=== PATIENT | female | born 1975 | race Caucasian/White ===

== ENCOUNTER 2016-08-02 13:56 | Emergency (ER) | payer MEDICAID ==
[~2016-08-02] VITALS: Wt 73.2 kg
[~2016-08-02 13:56] MED LIST: ACET325T33 PO; ALBU8.5H5 IH; ALBU8.5H5 INH; AZIT250T94 PO; BENZ100C70 PO; CYCL-319 PO; DENIES MEDS; HYDR-3498 PO; HYDR-762 PO; IBUP-1542 PO; IBUP400T22 PO; ONDA4TAB35 PO; PANT40TA3 PO; PRED20TA PO; PREN1TAB49; PROM6.25 PO
[2016-08-02 15:01] LABS: URINE BLOOD (Dip) POC 3+ (NEGATIVE)
--- NOTE | 2016-08-02 15:32 | ERD ---
ER Documentation Chief Complaint Date/Time DATE: 08/02/16 TIME: 15:30 Chief Complaint vaginal itchiness and fullness HPI This a 41-year-old female who presents to the emergency department today complaining of vaginal itchiness and burning with some urination for the past 4 days. States she is used Monistat and Vagisil and Chlortrimazole with no improvement in symptoms. Denies any fevers or chills. She is currently on her menstrual cycle ROS All systems reviewed and are negative except as per history of present illness. Medications Home Meds Active Scripts Fluconazole* (Diflucan*) 150 Mg Tablet, 150 MG PO ONCE, #2 TAB Take first tablet then repeat in 1 week Prov:MARYCRUZ SAMUELS PA-C 08/02/16 Cephalexin* (Keflex*) 500 Mg Capsule, 500 MG PO QID for 7 Days, CAP Prov:MARYCRUZ SAMUELS PA-C 08/02/16 Pantoprazole* (Protonix*) 40 Mg Tablet.dr, 40 MG PO DAILY, #20 TAB Prov:OMERO WAN MD 08/18/15 Cyclobenzaprine Hcl* (Cyclobenzaprine Hcl*) 10 Mg Tablet, 10 MG PO TID, #15 TAB Prov:CHUCKY ADDISON NP 08/10/15 Hydrocodone Bit-Acetaminophen* ([place]*) 5-325 Mg Tab, 1 TAB PO Q6 Y for PAIN, # 20 TAB Prov:CHUCKY ADDISON NP 08/10/15 Ibuprofen* (Motrin*) 600 Mg Tab, 600 MG PO Q6H Y for PAIN AND OR ELEVATED TEMP, #30 TAB Prov:CHUCKY ADDISON NP 08/10/15 Ondansetron Hcl* (Zofran* ODT) 4 mg -ODT Tab.disper, 4 MG PO Q6 Y for NAUSEA AND /OR VOMITING, #30 TAB Prov:OMERO WAN MD 04/06/15 Hydrocodone Bit-Acetaminophen* ([place]*) 10-325 Mg Tablet, 1 TAB PO Q6 Y for PAIN , #7 TAB Prov:OMERO WAN MD 04/06/15 Cyclobenzaprine Hcl* (Cyclobenzaprine Hcl*) 10 Mg Tablet, 10 MG PO TID, #15 TAB Prov:JADONSANGEETHA Abi 02/24/15 Ibuprofen* (Motrin*) 600 Mg Tab, 600 MG PO Q6H Y for PAIN AND OR ELEVATED TEMP, #30 TAB Prov:SANGEETHA DIOP Abi 02/24/15 Albuterol Sulfate* (Albuterol Sulfate* HFA) 8.5 Gm Hfa.aer.ad, 2 PUFF IH Q4H Y for WHEEZING AND SOB, #1 EA Prov:LIO MCINTOSH PA-C 10/13/14 Azithromycin* (Zithromax*) 250 Mg Tablet, 250 MG PO .ZPACK DIRECTED, #6 TAB TAKE 500 MG (2 TABS) THE FIRST DAY THEN 250 MG (1 TAB) DAYS 2-5 Prov:LIO MCINTOSH PA-C 10/13/14 Promethazine w/Codeine* (Phenergan w/Codeine* Syrup) 5 Ml Syrup, 5 ML PO Q4H Y for COUGH, #4 OZ Prov:LOPEZ NEVAREZA 09/11/14 Albuterol Sulfate* (Albuterol Sulfate* HFA) 8.5 Gm Hfa.aer.ad, 1-2 PUFF INH Q4 Y for SHORTNESS OF BREATH, #1 EA Prov:LOPEZ NEVAREZA 09/11/14 Prednisone* (Prednisone*) 20 Mg Tab, 20 MG PO BID for 4 Days, TAB Prov:CHOTONE 09/11/14 Azithromycin* (Zithromax*) 250 Mg Tablet, 250 MG PO .ZPACK DIRECTED, #6 TAB TAKE 500 MG (2 TABS) THE FIRST DAY THEN 250 MG (1 TAB) DAYS 2-5 Prov:LOPEZ NEVAREZA 09/11/14 Ibuprofen* (Motrin*) 400 Mg Tab, 400 MG PO Q6, #30 TAB Prov:SHAMIR BYRD PA-C 09/03/14 Acetaminophen* (Tylenol*) 325 Mg Tablet, 1 TAB PO Q6 Y for PAIN AND OR ELEVATED TEMP, #30 TAB Prov:SHAMIR BYRD PA-C 09/03/14 Promethazine w/Codeine* (Phenergan w/Codeine* Syrup) 5 Ml Syrup, 5 ML PO HS Y for COUGH for 7 Days, ML Prov:SHAMIR BYRD PA-C 09/03/14 Benzonatate* (Tessalon Perle*) 100 Mg Capsule, 100 MG PO TID, #30 CAP Prov:ROCHELLESHAMIR Cho PA-C 09/03/14 Reported Medications Vits W-Ca,Fe,Fa(<1MG) () 1 Tab Tablet 06/14/10 [Denies Meds] No Conflict Check 05/23/10 Allergies Allergies: Coded Allergies: No Known Drug Allergy (Verified Allergy, Mild, 02/24/15) PMhx/Soc History of Surgery: Yes (CYHOLECYSTECTOMY ) Anesthesia Reaction: No Hx Neurological Disorder: No Hx Respiratory Disorders: No Hx Cardiac Disorders: No Hx Psychiatric Problems: No Hx Miscellaneous Medical Probl: No Hx Alcohol Use: No Hx Substance Use: No Hx Tobacco Use: No Smoking Status: Never smoker Physical Exam Vitals Vital Signs Date Time Temp Pulse Resp B/P Pulse Ox O2 Delivery O2 Flow Rate FiO2 08/02/16 14:13 98.0 79 20 146/91 98 Physical Exam Const: No acute distress Head: Atraumatic Eyes: Normal Conjunctiva ENT: Normal External Ears, Nose and Mouth. Neck: Full range of motion..~ No meningismus. Resp: Clear to auscultation bilaterally Cardio: Regular rate and rhythm, no murmurs Abd: Soft, non tender, non distended. Normal bowel sounds : Pelvic exam shows a significant amount of yeast and vaginal bleeding. No cervical motion tenderness. Skin: No petechiae or rashes Back: No midline or flank tenderness Ext: No cyanosis, or edema Neur: Awake and alert Psych: Normal Mood and Affect Results 24 hrs Laboratory Tests Test 08/02/16 15:06 Bedside Urine pH (LAB) 7.5 Bedside Urine Protein (LAB) 1+ Bedside Urine Glucose (UA) Negative Bedside Urine Ketones (LAB) Negative Bedside Urine Blood 3+ Bedside Urine Nitrite (LAB) Negative Bedside Urine Leukocyte Esterase (L 3+ Procedures/MDM This is a 41-year-old female who presents to the emergency department today complaining of vaginal itchiness and some burning with urination and pressure. I did obtain a UA as well as do a pelvic exam UA shows 3+ leukocyte esterase and 3+ blood. Patient indicated she is currently on her menstrual cycle. Patient be given a prescription for Keflex for a urinary tract infection. test is negative Vaginal exam shows vaginal bleeding with a significant amount of yeast. No cervical motion tenderness. Low suspicion for PID. Patient be given a prescription for Keflex and Diflucan. She may continue using her Chlortrimazole. At this time the patient is stable for discharge and outpatient management. Patient should follow up with their PCP in the next 1-2 days. They may return to the emergency department sooner for any persistent or worsening of symptoms. Patient understood and agreed with the plan. Departure Diagnosis: Primary Impression: UTI (urinary tract infection) Urinary tract infection type: site unspecified Hematuria presence: with hematuria Qualified Code: N39.0 - Urinary tract infection with hematuria, site unspecified Additional Impression: Vaginal yeast infection Condition: Fair MARYCRUZ SAMUELS PA-C Aug 02, 2016 15:32
[2016-08-02] MEDS ORDERED: CEPH-443 PO (15:56)
[2016-08-02] MEDS ORDERED: FLUC150T17 PO (15:57)
== END 2016-08-02 16:25 | disposition home or self-care (01) ==
LOC: FTE 13:56
DX: N39.0 Urinary tract infection, site not specified (principal); B37.3 Candidiasis of vulva and vagina
CPT/HCPCS: 81003; Z7502; 99284

== ENCOUNTER 2017-03-14 16:05 | Emergency (ER) | END 2017-03-14 17:07 | disposition home or self-care (01) ==

== ENCOUNTER 2018-04-18 16:55 | Emergency (ER) | payer SELFPAY ==
[~2018-04-18] VITALS: Ht 162.6 cm; Wt 76.1 kg
[~2018-04-18 16:55] MED LIST changes: +AZIT250T PO; -AZIT250T94 PO; +BENZ-6 PO; -BENZ100C70 PO; +CEPH-443 PO; -CYCL-319 PO; +CYCL10TA7 PO; +FLUC150T PO; +IBUP-1561 PO; -IBUP400T22 PO; +LORA1TAB54 PO
[2018-04-18 17:10] VITALS: Ht 162.6 cm; Wt 76.1 kg
== END 2018-04-18 20:02 | disposition left against medical advice (07) ==
LOC: E/R 16:55
DX: Z53.21 Procedure and treatment not carried out due to patient leaving prior to being seen by health care provider (principal)

== ENCOUNTER 2018-05-05 11:12 | Outpatient (CLI) | payer MEDICAID ==
[~2018-05-05] VITALS: Ht 160 cm; Wt 75.0 kg
[2018-05-05 11:20] VITALS: Ht 160 cm; Wt 75.0 kg
--- NOTE | 2018-05-05 13:12 | TRIAGE ---
OB Triage Datetime Report Generated by CPN: 05/05/2018 13:12 Datetime: 05/05/2018 13:07 Stage of : OB Triage Maternal Assessment Level of Consciousness: Fully Conscious DTR's/Clonus: DTRs 1+ Headache: Denies Nausea/Vomiting: Denies RUQ Epigastric Pain: Denies Labor Evaluation Frequency: NONE Monitor Mode: External Resting Tone [place]: Relaxed Heart Rate FHR Baseline Rate: 145 Monitor Mode: Doppler Pain Assessment Pain Presence: None/Denies Pain Type: N/A Vaginal Exam Membrane Status: Intact Datetime: 05/05/2018 11:50 Maternal Assessment Level of Consciousness: Fully Conscious DTR's/Clonus: DTRs 1+ Headache: Denies Blurred Vision: No Nausea/Vomiting: Denies RUQ Epigastric Pain: Denies Facial Edema: None Labor Evaluation Frequency: NONE Monitor Mode: External Resting Tone [place]: Relaxed Heart Rate FHR Baseline Rate: 145 Monitor Mode: Doppler Pain Assessment Pain Presence: None/Denies Pain Type: N/A Vaginal Exam Membrane Status: Intact Datetime: 05/05/2018 11:18 Assessment Type: Triage Maternal Assessment Level of Consciousness: Fully Conscious DTR's/Clonus: DTRs 2+; No Clonus Headache: Denies Blurred Vision: No Respiratory Effort: Unlabored; Regular Rhythm; Equal Expansion Breath Sounds, Left: Clear and Equal Breath Sounds, Right: Clear and Equal Nausea/Vomiting: Denies RUQ Epigastric Pain: Denies Lower Extremities Edema: None Degree: None Upper Extremities Edema: None Degree: None Facial Edema: None Fall Risk Assessment History of Falling: (0) No Secondary Diagnosis: (0) No Ambulatory Aid: (0) Bedrest/Nurse Assist IV Therapy: (0) No Gait: (0) Normal/Bedrest/Immobile Mental Status: (0) Oriented to Own Ability Fall Score: 0 Fall Risk Score Definition: No Risk: No action required Datetime: 05/05/2018 11:12 Time of Arrival: 05/05/2018 11:12 EGA: 21.6 Arrived By: Ambulatory Arrived From: Home Chief Complaint: PT CAME IN C/O UC'S AND SPOTTING SINCE 0730 AM Movement: Present Contractions: Irregular Time Contractions Began: 05/05/2018 07:00 Contractions: 5 MIN Rupture of Membranes: Denies Vaginal Discharge: Denies Recent Sexual Intercouse: Denies Abdominal Trauma: Not Applicable Additional Patient Complaints: NONE Time Provider Notified: 05/05/2018 11:18 Provider Notified: QUENTIN Initial Plan: TOCO, DOPPLER, CX LENGHT AND UA
--- NOTE | 2018-05-05 13:34 | PN ---
Triage Information Date/Time Reason for visit: Abd/pelvic pain Weeks of Gestation 21-week and 6 days /Para Diabetes: none Hypertention: none Objective Heart Rate: 130's Contractions: None Results/Medications Results 24 hrs Laboratory Tests Test 05/05/18 11:18 Urine Color STRAW Urine Clarity CLEAR Urine pH 7.0 Urine Specific [place] 1.002 L Urine Ketones NEGATIVE Urine Nitrite NEGATIVE Urine Bilirubin NEGATIVE Urine Urobilinogen NEGATIVE Urine Leukocyte Esterase NEGATIVE Urine Hemoglobin NEGATIVE Urine Glucose NEGATIVE Urine Total Protein NEGATIVE Imaging Results Noted is a single intrauterine gestation in cephalic lie with positive heart beat measuring 150 beats per minute. The placenta is posterior grade 0 without evidence of previa. Maternal cervix is closed measuring 5.4 cm in [facility]. IMPRESSION: Single intrauterine gestation in cephalic lie with positive heart beat. Posterior grade 0 placenta without previa. Cervix is closed measuring 5.4 cm. Disposition: Discharge Assessment/Plan 43-year-old with single intrauterine at 21 weeks and 6 days complaining of abdominal pain and possible uterine contractions. She states good movement. She denies nausea, vomiting, shortness of breath, chest pain, headache, visual changes, vaginal bleeding or LOF. -FHR: No sign of metabolic acidosis- Category I -Contractions: None -Ultrasound performed: As noted above, normal cervical length -Urinalysis within normal limits -Symptoms and sign of labor, preeclampsia, kick count discussed with patient, she voiced understanding. All of her questions answered. -Patient was discharged home in stable condition with the appropriate discharge instructions provided. I would like patient to have close follow-up with her primary physician or outpatient clinic in 1-2 days or return to triage for worsening symptoms or any other urgent concerns. LILIA SAAVEDRA May 05, 2018 13:34
== END 2018-05-05 13:08 | disposition home or self-care (01) ==
LOC: OBT 11:12 → L-D 11:14 → OBT 13:08
PROVIDERS: ATTEND Obstetrics & Gynecology
DX: O26.892 Other specified pregnancy related conditions, second trimester (principal); R10.2 Pelvic and perineal pain; O09.522 Supervision of elderly multigravida, second trimester; Z3A.21 21 weeks gestation of pregnancy
CPT/HCPCS: 76817; 81003; Z7500; G0463

== ENCOUNTER 2018-08-01 17:36 | Outpatient (CLI) | payer MEDICAID ==
[~2018-08-01] VITALS: Ht 157.5 cm; Wt 78.7 kg
[~2018-08-01 17:36] MED LIST changes: -ACET325T33 PO; -ALBU8.5H5 IH; -ALBU8.5H5 INH; -AZIT250T PO; -BENZ-6 PO; -CEPH-443 PO; -CYCL10TA7 PO; -DENIES MEDS; -FLUC150T PO; -HYDR-3498 PO; -HYDR-762 PO; -IBUP-1542 PO; -IBUP-1561 PO; -LORA1TAB54 PO; -ONDA4TAB35 PO; -PANT40TA3 PO; -PRED20TA PO; -PROM6.25 PO
[2018-08-01 17:43] VITALS: Ht 157.5 cm; Wt 78.7 kg
[2018-08-01 17:44] VITALS: BP 126/74; PULSE 82; RESP 18
[2018-08-01] MEDS ORDERED: LACTATED RINGER'S 1,000 ML IV SCH (18:00)
[2018-08-01] MEDS ORDERED: TERBUTALINE 1 MG/ML INJ SC PRN (19:00)
--- NOTE | 2018-08-01 22:34 | PN ---
Triage Information Date/Time Reason for visit: Abd/pelvic pain Weeks of Gestation 43-year-old 4 para 2 at 34 weeks and 4 days of gestation with estimated date of delivery September 09, 2018 Patient presents with chief complaint of abdominal pain and uterine contractions Patient reports positive movement, denies vaginal bleeding or leaking fluid /Para 4 para 2 Diabetes: none Hypertention: none Objective Vital Signs Date Temp Pulse Resp B/P (MAP) Pulse Ox O2 O2 Flow FiO2 Time Delivery Rate 08/01/18 98.1 82 18 126/74 17:44 (91) Heart Rate: 140's Heart Rate Comments heart rate tracing category 1 Contractions: < 5 Minutes Apart Results/Medications Results 24 hrs Laboratory Tests Test 08/01/18 18:00 Urine Color COLORLESS Urine Clarity CLEAR Urine pH 7.0 Urine Specific [place] 1.001 L Urine Ketones NEGATIVE Urine Nitrite NEGATIVE Urine Bilirubin NEGATIVE Urine Urobilinogen NEGATIVE Urine Leukocyte Esterase NEGATIVE Urine Hemoglobin NEGATIVE Urine Glucose NEGATIVE Urine Total Protein NEGATIVE Imaging Results Ordering MD: LILIA SAAVEDRA MD Location: [facility] Room/Bed: PROCEDURE: US OB. CLINICAL INDICATION: labor TECHNIQUE: Multiple sonographic images of the pelvis were obtained. The images were reviewed on a PACS workstation. COMPARISON: No prior studies are available for comparison. FINDINGS: There is a single viable intrauterine gestation. Cardiac activity is present with 140 beats per minute. There is a cephalic presentation. Measurements were made in order to determine age. The results are as follows: BPD = 8.34 cm 33 weeks 4 days HC = 29.93 cm 33 weeks 1 day AC = 33.26 cm 37 weeks 1 day FL = 6.78 cm 34 weeks 6 days. Estimated gestational age of approximately 34 weeks 5 days. The estimated date of delivery is 09/07/2018. The EFW = 2752 g 81.5% . The placenta is right posterior grade 1 to II. There is no evidence for an abruption . There is a normal amount of amniotic fluid with an SHERRY = 10.1 cm. IMPRESSION: Single viable intrauterine gestation of approximately 34 weeks 5 days. The estimated date of delivery is 09/07/2018 . Abdominal circumference measurement is disproportionate larger than other measurements. Recommend a follow-up study. .Efra Chanel MD, MD Date Time Electronically viewed and signed by .Efra Chanel MD, MD on 08/01/2018 18:32 .W/ CC: LILIA SAAVEDRA [phone] PROCEDURE: US OB. CLINICAL INDICATION: Labor TECHNIQUE: Multiple sonographic images of the pelvis were obtained. The images were reviewed on a PACS workstation. COMPARISON: No prior studies are available for comparison. FINDINGS: There is a single live intrauterine . cardiac activity is identified at a rate of 140 beats per minute. presentation is cephalic. Placenta is posterior right grade 1 to II. Cervix is closed with a length of 3.2 cm Biophysical profile score is as follows: Breathing 2 Movements 2 Tone 2 Fluid volume 2 Amniotic fluid index = 10.1 cm Total biophysical profile score = 8/8 IMPRESSION: Biophysical profile score = 8/8 Cervix is closed with a length of 3.2 cm RPTAT: HH .Efra Chanel MD, Date Time Electronically viewed and signed by .Efra Chanel MD, MD on 08/01/2018 18:25 .W/ CC: LILIA SAAVEDRA [phone] Disposition: Discharge Assessment/Plan Patient received IV fluids and terbutaline x1 dose and contractions completely subsided Patient counseled to increase p.o. hydration kick count instructions were given Labor precautions were given Patient instructed to follow-up with [facility] in 1 to 2 days DONNA CARTER MD Aug 01, 2018 22:34
--- NOTE | 2018-08-02 03:19 | TRIAGE ---
OB Triage Datetime Report Generated by CPN: 08/02/2018 03:19 Datetime: 08/01/2018 21:50 Stage of : OB Triage Datetime: 08/01/2018 21:32 Stage of : OB Triage Labor Evaluation Frequency: Occasional Monitor Mode: External Pattern: Normal: <= 5 Contractions in 10 Minutes Resting Tone [place]: Relaxed Heart Rate FHR Baseline Rate: 130 Monitor Mode: External US Variability: Moderate 6-25 bpm Accelerations: 15X15 Decelerations: None Category: Category I Pain Presence: None/Denies Pain Type: N/A Pain Relief Measures: Comfort Measures Datetime: 08/01/2018 20:36 Stage of : OB Triage Labor Evaluation Frequency: 2-6 Monitor Mode: External Resting Tone [place]: Relaxed Heart Rate FHR Baseline Rate: 125 Monitor Mode: External US Variability: Moderate 6-25 bpm Accelerations: 15X15 Decelerations: None Category: Category I Pain Assessment Pain Scale: 5 Pain Presence: Intermittent Pain Type: Contraction Pain Location: Abdomen; Back Pain Relief Measures: Comfort Measures Datetime: 08/01/2018 19:32 Stage of : OB Triage Labor Evaluation Frequency: 2-5 Monitor Mode: External Duration (sec)2399: 50-80 Resting Tone [place]: Relaxed Heart Rate FHR Baseline Rate: 125 Monitor Mode: External US Variability: Moderate 6-25 bpm Accelerations: 15X15 Decelerations: None Category: Category I Pain Assessment Pain Scale: 6 Pain Presence: Intermittent Pain Type: Contraction Pain Location: Abdomen; Back Pain Relief Measures: Comfort Measures Datetime: 08/01/2018 19:30 Time of Arrival: 08/01/2018 17:28 EGA: 34.3 Arrived By: Wheelchair Arrived From: Emergency Dept Movement: Decreased Contractions: Irregular Rupture of Membranes: Denies Vaginal Bleeding: None Vaginal Discharge: Denies Recent Sexual Intercouse: Denies Abdominal Trauma: Not Applicable Patient Complaints: Contractions; Back Pain Time Provider Notified: 08/01/2018 18:43 Provider Notified: Ardalan Initial Plan: VS, EFM Datetime: 08/01/2018 18:30 Stage of : OB Triage Maternal Assessment Level of Consciousness: Keenly Alert, Responsive Labor Evaluation Frequency: 2-6 Monitor Mode: External Duration (sec)2399: 30-90 Quality: Moderate Resting Tone [place]: Relaxed Heart Rate FHR Baseline Rate: 135 Monitor Mode: External US Variability: Moderate 6-25 bpm Accelerations: 15X15 Decelerations: None Category: Category I Pain Assessment Pain Scale: 0 Pain Goal: 3 Membrane Status: Intact Vaginal Bleeding: None Datetime: 08/01/2018 17:45 Vaginal Exam Dilatation (cms): 0.0 Exam By: [facility] Datetime: 08/01/2018 17:42 Assessment Type: Triage Maternal Assessment Level of Consciousness: Keenly Alert, Responsive DTR's/Clonus: DTRs 2+; No Clonus Headache: Denies Blurred Vision: No Respiratory Effort: Unlabored; Regular Rhythm; Equal Expansion Breath Sounds, Left: Clear and Equal Breath Sounds, Right: Clear and Equal Nausea/Vomiting: Denies RUQ Epigastric Pain: Denies Lower Extremities Edema: None Degree: None Upper Extremities Edema: None Degree: None Facial Edema: None Fall Risk Assessment History of Falling: (0) No Secondary Diagnosis: (0) No Ambulatory Aid: (0) Bedrest/Nurse Assist IV Therapy: (0) No Gait: (0) Normal/Bedrest/Immobile Mental Status: (0) Oriented to Own Ability Fall Score: 0 Fall Risk Score Definition: No Risk: No action required Datetime: 08/01/2018 17:38 Monitor Mode: External Monitor Mode: External US Datetime: 05/05/2018 13:08 Time of Arrival: 08/01/2018 17:28 EGA: 34.3 Arrived By: Ambulatory Arrived From: Home Chief Complaint: C/O lower abdominal pain _ pressure, lower back pain since 2pm, pain level 5/10, q 10-20mins, also c/o decreased fm Movement: Decreased Rupture of Membranes: Denies Vaginal Bleeding: None Vaginal Discharge: Denies Recent Sexual Intercouse: Denies Abdominal Trauma: Not Applicable Datetime: 05/05/2018 11:18 Fall Score: 0 Fall Risk Score Definition: No Risk: No action required Datetime: 05/05/2018 11:12 EGA: 21.6
== END 2018-08-01 22:00 | disposition home or self-care (01) ==
LOC: OBT 17:36 → L-D 17:36 → OBT 22:00
PROVIDERS: ATTEND Obstetrics & Gynecology
DX: O26.893 Other specified pregnancy related conditions, third trimester (principal); O47.03 False labor before 37 completed weeks of gestation, third trimester; Z3A.34 34 weeks gestation of pregnancy; O09.523 Supervision of elderly multigravida, third trimester
CPT/HCPCS: 76815; 76817; 76818; 81003; 96360; 96372; J3105; J7120; Z7500; G0463

== ENCOUNTER 2018-08-30 15:46 | Inpatient (IN) | payer MEDICAID ==
[~2018-08-30] VITALS: Ht 154.9 cm; Wt 79.3 kg
[2018-08-30 15:58] VITALS: BMI 33.0
[2018-08-30 15:59] VITALS: BP 117/74; PULSE 93; RESP 18
[2018-08-30] MEDS ORDERED: LACTATED RINGER'S 1,000 ML IV PRN (19:35)
[2018-08-30] MEDS: LACTATED RINGER'S 1,000 ML IV SCH (19:54)
[2018-08-30] MEDS ORDERED: IBUPROFEN 600 MG TAB PO PRN (20:00)
[2018-08-30] MEDS ORDERED: CARBOPROST 250 MCG INJ IM PRN (20:00)
[2018-08-30] MEDS ORDERED: BUTORPHANOL 2 MG INJ IV PRN (20:00)
[2018-08-30] MEDS ORDERED: MISOPROSTOL 200 MCG TAB PR PRN (20:00)
[2018-08-30] MEDS ORDERED: OXYTOCIN 30 UNITS/LR 500 ML IV SCH ×3 (20:00)
[2018-08-30] MEDS ORDERED: OXYTOCIN 30 UNITS/LR 500 ML IV PRN (20:00)
[2018-08-30] MEDS ORDERED: METHYLERGONOVINE 0.2 MG INJ IM PRN (20:00)
[2018-08-30] MEDS ORDERED: LIDOCAINE 1% (MPF) 30 ML INJ INJ PRN (20:00)
[2018-08-30] MEDS ORDERED: MINERAL OIL LIGHT 10 ML VIAL TOP PRN (20:00)
--- NOTE | 2018-08-30 20:15 | HP ---
Date/Time of Note Date/Time of Note DATE: 08/30/18 TIME: 20:09 OB - History Hx of Present Free Text/Dictation 43y.o A1 at 38w4d with c/o uc's 4-10min apart ,intact membrane. Initial VE ftp/30/-3 , pain level 4/10 but constant pain she cannot bear with it. no record is available at present admitted for expectant management , poss pitocin augmentation. GBS statu is not known Chief Complaint: uc Estimated Due Date: Sep 07, 2018 : 4 Para: 2 Spontaneous : 1 Therapeutic : 0 Care: Other Ultrasounds: Other Obstetrical Complications: Other Medical Complications: Other Past Family/Social History * Past Medical, Surgical, Family and Obstetric Histories reviewed from chart. Blood Type: Unknown Rubella: unknown RPR/VDRL: Unknown GBS Status: Unknown HBsAG: Unknown OB Admission Exam Vital Signs Vital Signs Vital Signs Date Temp Pulse Resp B/P (MAP) Pulse Ox O2 O2 Flow FiO2 Time Delivery Rate 08/30/18 98.2 93 18 117/74 Room Air 15:59 (88) Physical Exam HEENT: WNL Heart: Rhythm Normal Lungs: Clear, Equal Abdomen: WNL Extremities: Normal Reflexes: Normal Cervical Dilatation: Fingertip Effacement: Other (30%) Station: -3 Membranes: Intact Amniotic Fluid: Unevaluable Heart Rate: 140's Accelerations: Accelerations Present Decelerations: No Decelerations Varibility: Moderate Contractions on Admission: < 5 Minutes Apart Intensity: Mild Last 72 hours Lab Results CBC & BMP 08/30/18 19:21 OB Assessment/Plan Other Assessment: A IUP 38w4d in early labor Plan: Expectant Management, Other (possible pitocin augmentation) ZABRINA WILLIS MD Aug 30, 2018 20:15
[2018-08-31] MEDS: LACTATED RINGER'S 1,000 ML IV SCH ×3 (03:31→19:35)
[2018-08-31 07:57] VITALS: Ht 154.9 cm; Wt 79.3 kg
[2018-08-31 07:58] VITALS: BP 110/69; PULSE 78; RESP 17
[2018-09-01] MEDS ORDERED: FENTAnyl 2MCG/ML-ROPIV 0.2% 100 ML ONE (02:38)
--- NOTE | 2018-09-01 02:50 | PREAC ---
Date/Time of Note Date/Time of Note DATE: 09/01/18 TIME: 02:48 Anesthesia Eval and Record Evaluation Time Pre-Procedure Interview DATE: 09/01/18 TIME: 02:04 Age 43 Sex female NPO: 8 hrs Preoperative diagnosis iup @ 38.5 wks., , labor Planned procedure sukumar Past Medical History Past Medical History: Includes : : (4), Para: (2), Gestational age: (38.5 wks.) Surgery & Anesthesia Issues No known issue Meds Anticoagulation: No Beta Elia within 24 hr: No Reason Beta Elia not given: Pt. not on B-Elia Reported Medications Vits W-Ca,Fe,Fa(<1MG) () 1 Tab Tablet 06/14/10 Current Medications Lactated Ringer's 1,000 ml @ 125 mls/hr Q8H IV Last administered on 08/31/18at 19:35; Admin Dose 125 MLS/HR; Start 08/30/18 at 19:35 Butorphanol Tartrate (Stadol) 2 mg Q2H PRN IV .PAIN SCALE 6-10; Start 08/30/18 at 20:00 Lidocaine (Xylocaine 1% (Mpf)) 30 ml ONCE PRN INJ .EPISIOTOMY; Start 08/30/18 at 20:00 Oxytocin/Lactated Ringer's 500 ml @ 500 mls/hr ONCE POST IV ; Start 08/30/18 at 20:00 Oxytocin/Lactated Ringer's 500 ml @ 125 mls/hr POST IV ; Start 08/30/18 at 20:00 Ibuprofen (Motrin) 600 mg ONCE PRN PO .PAIN 1-5; Start 08/30/18 at 20:00 Lactated Ringer's 1,000 ml @ 2,000 mls/hr Q30M PRN IV .ANESTHESIA Last administered on 09/01/18at 01:43; Admin Dose 2,000 MLS/HR; Start 08/30/18 at 19:35 Oxytocin/Lactated Ringer's 500 ml @ 0 mls/hr ONCE PRN IV .VAGINAL BLEEDING; Start 08/30/18 at 20:00 Methylergonovine Maleate (Methergine) 0.2 mg ONCE PRN IM .VAGINAL BLEEDING; Start 08/30/18 at 20:00 Carboprost Tromethamine (Hemabate) 250 mcg ONCE PRN IM .VAGINAL BLEEDING; Start 08/30/18 at 20:00 Misoprostol (Cytotec) 1,000 mcg ONCE PRN SC .VAGINAL BLEEDING; Start 08/30/18 at 20:00 Oxytocin/Lactated Ringer's 500 ml @ 0 mls/hr FOR AUGMENTATION IV Last admi nistered on 08/31/18at 08:42; Admin Dose 1 MLS/HR; Start 08/30/18 at 20:00 Meds reviewed: Yes Allergies Coded Allergies: No Known Drug Allergy (Verified Allergy, Mild, 08/30/18) Allergies Reviewed: Yes Labs/Studies Labs Reviewed: Reviewed by anesthesiologist Result Diagram: 08/30/181920 test: Positive Pre-procedure Exam Last vitals Vital Signs Date Temp Pulse Resp B/P (MAP) Pulse Ox O2 O2 Flow FiO2 Time Delivery Rate 08/31/18 97.3 78 17 110/69 Room Air 07:58 (83) Airway: Adequate mouth opening, Adequate thyromental dist Mallampati: Mallampati II Teeth: Normal Lung: Normal Heart: Normal ASA Physical Status ASA physical status: 2 Emergency: E Planned Anesthetic Neuraxial: Epidural Planned Pain Management Epidural, Parenteral pain med, Other neuraxial med Pre-operative Attestations Prior to commencing anesthesia and surgery, the patient was re-evaluated, there was verification of: *The patient's identity *The results of appropriate recent lab work and preoperative vital signs *The above evaluation not changing prior to induction *Anesthetic plan, risk benefits, alternative and complications discussed with patient/family; questions answered; patient/family understands, accepts and wishes to proceed. Teaseler used CATERINA ALONSO MD Sep 01, 2018 02:50
[2018-09-01] MEDS ORDERED: NALOXONE (0.4 MG/ML) INJ IV PRN (03:00)
[2018-09-01] MEDS ORDERED: ONDANSETRON 4 MG INJ IV PRN (03:00)
[2018-09-01] MEDS ORDERED: FENTAnyl 2MCG/ML-ROPIV 0.2% 100 ML BAG EPI SCH (03:00)
[2018-09-01] MEDS: LACTATED RINGER'S 1,000 ML IV SCH (04:10)
[2018-09-01 06:30] VITALS: BP 112/61; PULSE 66; RESP 19
[2018-09-01] MEDS ORDERED: OXYTOCIN 30 UNITS/LR 500 ML IV SCH (06:31)
[2018-09-01] MEDS ORDERED: DIBUCAINE 1% 30 GM OINT TOP PRN (07:00)
[2018-09-01] MEDS ORDERED: BENZOCAINE 20% 56 ML SPRAY TOP PRN (07:00)
[2018-09-01] MEDS ORDERED: LANOLIN HPA 1 PKT TOP PRN (07:00)
[2018-09-01] MEDS ORDERED: MAGNESIUM HYDROXIDE 30ML CUP PO PRN (07:00)
[2018-09-01] MEDS ORDERED: ACETAMINOPHEN 325 MG TAB PO PRN ×2 (07:00)
[2018-09-01] MEDS ORDERED: WITCH HAZEL/GLYCERIN PAD PR PRN (07:00)
[2018-09-01] MEDS ORDERED: CARBOPROST 250 MCG INJ IM PRN (07:00)
[2018-09-01] MEDS ORDERED: MISOPROSTOL 200 MCG TAB PR PRN (07:00)
[2018-09-01] MEDS ORDERED: METHYLERGONOVINE 0.2 MG INJ IM PRN (07:00)
[2018-09-01] MEDS ORDERED: OXYTOCIN 30 UNITS/LR 500 ML IV PRN (07:00)
[2018-09-01 09:00] VITALS: BP 116/64; PULSE 73; RESP 14
--- NOTE | 2018-09-01 09:14 | PAC ---
Date/Time of Note Date/Time of Note DATE: 09/01/18 TIME: 09:14 Post-Anesthesia Notes Post-Anesthesia Note Last documented vital signs Vital Signs Date Temp Pulse Resp B/P (MAP) Pulse Ox O2 O2 Flow FiO2 Time Delivery Rate 09/01/18 98.0 66 19 112/61 Room Air 06:30 (78) Activity: WNL Respiratory function: WNL Cardiovascular function: WNL Mental status: Baseline Pain reasonably controlled: Yes Hydration appropriate: Yes Nausea/Vomiting absent: Yes CATERINA ALONSO MD Sep 01, 2018 09:14
--- NOTE | 2018-09-01 09:43 | LDN ---
Date/Time of Note Date/Time of Note DATE: 09/01/18 TIME: 09:39 Delivery Summary Term gestation Placenta Delivered: Spontaneously Meconium: none Episiotomy: No Laceration repair: Superficial laceration repaired with 3-0 chromic Anesthesia type: Epidural Estimated blood loss: 200 Sponge & Needle done & correct: Yes All needle counts correct: Yes Any foreign bodies felt in the: No Infant Delivery Information Sex Sex: male Apgars 1 Minute: 9 5 Minute: 9 Suctioning Nose & mouth suctioned at jesse: Yes Delee suction performed: No Umbilical Cord Umbilical cord with: 3 Vessels Cord presentations: no nuchal cord Cord Blood was obtained: Yes Mother & Baby Disposition Disposition Baby's weight 8 pounds 1 ounces/ 3645 g Methergine IM x1 dose given Copies To: CC: LILIA SAAVEDRA BAHAREH MD Sep 01, 2018 09:43
[2018-09-01] MEDS: LACTATED RINGER'S 1,000 ML IV* SCH ×3 (09:48→22:31)
[2018-09-01 16:00] VITALS: BP 104/44; PULSE 74; RESP 16
[2018-09-01 20:00] VITALS: BP 100/69; PULSE 75; RESP 20
[2018-09-01] MEDS: IBUPROFEN 600 MG TAB PO PRN (20:08)
[2018-09-02] MEDS: IBUPROFEN 600 MG TAB PO PRN ×3 (02:23→17:36)
[2018-09-02] MEDS ORDERED: ONDANSETRON 4 MG INJ IV PRN (03:00)
[2018-09-02 04:07] VITALS: BP 105/54; PULSE 74; RESP 20
[2018-09-02] MEDS: LACTATED RINGER'S 1,000 ML IV* SCH ×3 (06:31→22:31)
[2018-09-02 08:00] VITALS: BP 97/56; PULSE 72; RESP 16
--- NOTE | 2018-09-02 11:55 | PN ---
Date/Time of Note Date/Time of Note DATE: 09/02/18 TIME: 11:55 OB Subjective Subjective Subjective PPD#1 Patient without complaints. tolerating regular diet. ambulating. voiding. breast feeding. 97/56 hr 70 h/h 10.5/32.1 abd fundus below umbilicus ext nttp 1. -routine care. MILESTONE,BOBBY MAX Sep 02, 2018 11:55
[2018-09-02 15:55] VITALS: BP 102/63; PULSE 76; RESP 18
[2018-09-02 19:35] VITALS: BP 100/59; PULSE 67; RESP 18
[2018-09-02] MEDS: SENNA/DOCUSATE NA (8.6MG/50MG) TAB PO PRN (20:58)
[2018-09-03 03:38] VITALS: BP 99/68; RESP 19
[2018-09-03 07:40] VITALS: BP 104/51; PULSE 74; RESP 18
[2018-09-03] MEDS: SENNA/DOCUSATE NA (8.6MG/50MG) TAB PO PRN (08:56)
[2018-09-03] MEDS: IBUPROFEN 600 MG TAB PO PRN (09:02)
--- NOTE | 2018-09-03 12:40 | QN ---
Documentation Comment PPD#2 is stable afebrile No VB +BM +voids VS stable Gen NAD Abd soft NT ND Genitalia No blood at perineum --->Discharge RYLIE VELASCO M.D. Sep 03, 2018 12:40
--- NOTE | 2018-09-03 12:41 | DS ---
Date/Time of Note Date/Time of Note DATE: 09/03/18 TIME: 12:40 Discharge Summary Admission/Discharge Info Admit Date/Time Aug 30, 2018 at 17:48 Discharge Date/Time Sep 03, 2018 at 11:51 Discharge Diagnosis Patient Condition: Good Hospital Course uneventful Home Meds Reported Medications Vits W-Ca,Fe,Fa(<1MG) () 1 Tab Tablet 06/14/10 Primary Care Provider Care Physician No Primary RYLIE VELASCO M.D. Sep 03, 2018 12:41
--- NOTE | 2018-09-04 12:23 | DELSUM ---
Delivery Summary A-C Datetime Report Generated by CPN: 09/04/2018 12:23 DELIVERY PERSONNEL Director Of Publications: [place] MATERNAL INFORMATION Delivery Anesthesia: Epidural Medications in Delivery: 30U PITOCIN WITH LR Delivery QBL (ml): 200 Placenta Cultured: No Maternal Complications: None LABOR SUMMARY EDC: 09/09/2018 00:00 No. Babies in Womb: 1 Attempted: No Labor Anesthesia: Epidural LABOR INFORMATION Reason for Induction: Not Applicable Onset of Labor: 08/30/2018 02:00 Complete Dilatation: 09/01/2018 04:55 Group B Beta Strep: Negative Antibiotics # of Doses: 0 Steroids Given: None Reason Steroids Not Administered: Not Applicable MEMBRANES Membranes Rupture Method: Artificial Rupture of Membranes: 09/01/2018 05:04 Length of Rupture (hr): 0.05 Amniotic Fluid Color: Clear Amniotic Fluid Amount: Large Amniotic Fluid Odor: None STAGES OF LABOR Stage 1 hr: 50 Stage 1 min: 55 Stage 2 hr: 0 Stage 2 min: 12 Stage 3 hr: 0 Stage 3 min: 3 Total Time in Labor hr: 51 Total Time in Labor min: 10 VAGINAL DELIVERY Episiotomy: None Laceration Extension: First Degree Other Laceration: superficial Laceration Repair: Yes Initial Vag Sponge Count: 10 Final Vag Sponge Count: 10 Initial Vag Sharps Count: 1 Final Vag Sharps Count: 1 Sponge Count Correct: Yes; Vaginal Sweep Performed Sharps Count Correct: Yes BABY A INFORMATION Infant Delivery Date/Time: 09/01/2018 05:07 Method of Delivery: Vaginal Born in Route : No : N/A Forceps: N/A Vacuum Extraction: N/A Shoulder Dystocia : No SHOULDER DYSTOCIA BABY A Delivery Date/Time: 09/01/2018 05:07 PRESENTATION/POSITION BABY A Presentation: Cephalic Cephalic Presentation: Vertex Vertex Position: Right Occipital Posterior Breech Presentation: N/A PLACENTA INFORMATION BABY A Placenta Delivery Time : 09/01/2018 05:10 Placenta Method of Delivery: Spontaneous Placenta Status: Delivered SCORES BABY A Heart Rate 1 min: >100 bpm Resp Effort 1 min: Good Cry Reflex Irritability 1 min: Cough/Sneeze/Pulls Away Muscle Tone 1 min: Active Motion Color 1 min: Body [place], Extremit Blue Resuscitation Effort 1 min: Tactile Stimulation SCORE 1 MIN: 9 Heart Rate 5 min: >100 bpm Resp Effort 5 min: Good Cry Reflex Irritability 5 min: Cough/Sneeze/Pulls Away Muscle Tone 5 min: Active Motion Color 5 min: Body [place], Extremit Blue Resuscitation Effort 5 min: Tactile Stimulation SCORE 5 MIN: 9 INFORMATION BABY A Gestational Age at Delivery: 38.6 Gestational Status: Early Term- 37- 38.6 Weeks Infant Outcome : Liveborn, with signs of life Infant Condition : Stable Infant Sex: Male IDENTIFICATION/MEDS BABY A ID Band Number: [id number] ID Band Location: Right Leg; Left Arm Sensor Applied: Yes Sensor Number: [id number] Sensor Location : Cord Clamp Vitamin K Given : Not Given Erythromycin Given: Not Given WEIGHT/LENGTH BABY A Birthweight (gm): 3645 Infant Weight (lb): 8 Weight (oz): 1 Infant Length (in): 20.50 Infant Length (cm): 52.07 CORD INFORMATION BABY A No. Cord Vessels: 3 Nuchal Cord : N/A Cord Blood Taken: Yes Banking/Donate Info: NO Suction: Mouth; Nose
== END 2018-09-03 11:51 | disposition home or self-care (01) | DRG 807 ==
LOC: OBT 15:46 → L-D 15:46 → OBT 17:48 → PP1 09-01 06:30
PROVIDERS: ADMIT Obstetrics & Gynecology; ATTEND Obstetrics & Gynecology
PROC: 10E0XZZ Delivery of Products of Conception, External Approach (ICD-10-PCS; principal; 2018-09-01)
PROC: 0HQ9XZZ Repair Perineum Skin, External Approach (ICD-10-PCS; 2018-09-01)
DX: O70.0 First degree perineal laceration during delivery (principal); Z37.0 Single live birth; Z3A.38 38 weeks gestation of pregnancy
CPT/HCPCS: 62322; 76815; 76818; 85025; 85610; 85730; 86592; 86900; 86901; 87340; G0463; J2210; J2590; J3010; J7120